=== PATIENT | female | born 2005 | race Two or more races ===

== ENCOUNTER → 2024-06-08 | Outpatient (CLI) | payer BC, SELFPAY ==
[2024-06-08 16:18] LABS: Syphilis Nonreactive (Nonreactive)
[2024-06-08 16:32] LABS: HIV (1&2) Antibody Rapid Non-Reactive
[2024-06-12 22:03] LABS: HSV1 IgG Type Specific Ab 2.33 INDEX
[2024-06-15 07:07] LABS: HSV2 IgG Type Specific Ab <0.90 INDEX
== END | disposition home or self-care (01) ==
LOC: COPL 14:56
PROVIDERS: Referring Provider Registered Nurse; Visit Provider Registered Nurse
DX: Z20.2 Contact with and (suspected) exposure to infections with a predominantly sexual mode of transmission (principal)
CPT/HCPCS: 36415; 86695; 86696; 86703; 86780